=== PATIENT | male | born 1980 | race Caucasian/White ===

== ENCOUNTER 2022-09-18 22:49 | Emergency (ER) | payer OTHER ==
[2022-09-18] MEDS ORDERED: Amoxicillin/Clavulanate K 875-125 MG Tab PO ONE (23:32)
== END 2022-09-19 00:04 | disposition home or self-care (01) ==
LOC: JD.ED 22:49
DX: S61.451A Open bite of right hand, initial encounter (principal); W54.0XXA Bitten by dog, initial encounter
CPT/HCPCS: 12001; 99283; A9270; 99282

== ENCOUNTER 2022-09-19 15:34 | Emergency (ER) | payer OTHER | END 2022-09-19 17:35 | disposition home or self-care (01) | LOC: JD.ED 15:34 | DX: S61.451D Open bite of right hand, subsequent encounter (principal); E66.9 Obesity, unspecified; Z68.32 Body mass index [BMI] 32.0-32.9, adult | CPT/HCPCS: 99282 ==